=== PATIENT | male | born 1945 | race Caucasian/White ===

== ENCOUNTER → 2017-10-08 | Outpatient (CLI) | payer OTHER, BC ==
[2015-03-01 08:57] VITALS: BP 163/86
[~2017-10-08] MED LIST: NS 100 ML IV 100 ML IV ONE
--- NOTE | 2017-10-08 11:03 | CT ---
Indication: Status post fall with headaches and visual changes Exam: CT head with and without contrast. Technique: Routine transaxial images were obtained through the brain before after administration of u nder cc Omnipaque 350. Findings: The ventricles are mildly enlarged and there is diffuse mild prominence of the cortical sul ci. There is mild periventricular low density bilaterally. No intracranial hemorrhage or edema is see n and there is no extra-axial fluid collection or mass. The vascular structures are unremarkable with no enhancing lesion or mass identified. There is mild mucosal thickening throughout the ethmoid air cells . There is mild focal flattening deformity along the medial wall of the right orbit, in the are a of the lamina papyracea. The midline structures are unremarkable. Impression: Mild atrophy and mild chronic microischemic changes in the deep white matter with no acute intracrani al abnormality seen and specifically, no enhancing lesion or mass identified. Probable old mild compression fracture along the medial wall of the right orbit . Recommend clinical correlation suggest follow-up , if indicated. Mild chronic ethmoid sinusitis. Reported By:
== END | disposition home or self-care (01) | DRG 103 ==
LOC: RAD 08:38
PROVIDERS: ATTEND Nurse Practitioner Family
DX: R51 Headache (principal); H53.8 Other visual disturbances; W11.XXXS Fall on and from ladder, sequela; J32.2 Chronic ethmoidal sinusitis
CPT/HCPCS: 70470; A4222

== ENCOUNTER 2017-12-01 22:02 | Emergency (ER) | payer OTHER, BC ==
[2017-12-01 22:10] VITALS: BMI 32.3
[2017-12-01] MEDS ORDERED: NITROSTAT SL ONE (22:10)
[2017-12-01] MEDS ORDERED: NITROSTAT SL PRN (22:12)
[2017-12-01 22:19] LABS: BASOPHILS # (AUTO) 0.1 X10^3/uL (0.0-0.1); BASOPHILS % (AUTO) 0.8 % (0.2-1.0); EOSINOPHILS # (AUTO) 0.3 x10^3/uL (0.0-0.2); EOSINOPHILS % (AUTO) 2.3 % (0.9-2.9); HEMATOCRIT 46.6 % (42.0-54.0); HEMOGLOBIN 15.8 g/dL (13.5-18.0); LYMPHOCYTES # (AUTO) 4.6 X10^3/uL (1.3-2.9); LYMPHOCYTES % (AUTO) 36.5 % (21.0-51.0); MEAN CORPUSCULAR HEMOGLOBIN 30.1 pg (27.0-34.0); MEAN CORPUSCULAR HGB CONC 33.8 g/dL (33.0-35.0); MEAN CORPUSCULAR VOLUME 89.1 fL (80.0-100.0); MEAN PLATELET VOLUME 8.4 fL (7.4-11.0); MONOCYTES # (AUTO) 1.5 x10^3/uL (0.3-0.8); MONOCYTES % (AUTO) 11.5 % (0.0-13.0); NEUTROPHILS # (AUTO) 6.2 x10^3/uL (2.2-4.8); NEUTROPHILS % (AUTO) 48.9 % (42.0-75.0); PLATELET COUNT 343 X10^3/uL (150.0-450.0); RED BLOOD COUNT 5.23 X10^6/uL (4.7-6.0); RED CELL DISTRIBUTION WIDTH 13.5 % (11.6-16.5); WHITE BLOOD COUNT 12.7 X10^3/uL (3.6-10.0)
--- NOTE | 2017-12-01 22:31 | RAD ---
Chest, one view Indication: Shortness of breath, coughing up red colored frothy sputum Comparison: 03/01/2015 Findings: Heart size is normal. There is mild peribronchial thickening. No focal consolidation, signi ficant effusion or pneumothorax is identified. There is no acute osseous abnormality. Impression: Mild peribronchial thickening, suggestive for bronchitis. Reported By:
[2017-12-01 22:33] LABS: ALANINE AMINOTRANSFERASE 36 Units/L (12-78); ALKALINE PHOSPHATASE 82 Units/L (46-116); ASPARTATE AMINO TRANSFERASE 39 Units/L (15-37); BLOOD UREA NITROGEN 23 mg/dL (7-18); CALCIUM 9.4 mg/dL (8.5-10.1); CARBON DIOXIDE 23.9 mmol/L (21-32); CHLORIDE 106 mmol/L (98-107); COR NA(FOR HYPERGLY) 144 mmol/L (136-145); CREATININE 1.91 mg/dL (0.70-1.30); SODIUM 142 mmol/L (136-145); eGFR BLACK RACES 45 (>60); eGFR NON BLACK RACES 37 (>60)
[2017-12-01 22:45] LABS: B-TYPE NATRIURETIC PEPTIDE 54.6 pg/mL (0-79)
[2017-12-01 23:01] LABS: CREATINE KINASE 473 Units/L (39-308); TROPONIN I < 0.02 ng/mL (0-1.5)
[2017-12-01 23:03] LABS: CREATINE KINASE MB 4.7 ng/mL (0-4.0)
[2017-12-01] MEDS ORDERED: REFLEX: PROVENTIL NEB & PulmiCORT NEB~ NEB SCH (23:15)
--- NOTE | 2017-12-01 23:16 | DR.SOBA ---
HPI - Primary Care Physician Primary Care Physician: RAFAELA - HPI Comment HPI Comment: Pt with chronic cough and acute Dyspnea with productive cough of blood tinged frothy sputum. - Complaints Chief Complaint:: SHORTNESS OF BREATH COUGHING UP RED COLORED FROTHY SPUTUM PT IS COOL AND CLAMMY - Source History Provided: Patient - Mode of Arrival Mode of Arrival: Ambulatory - Timing Onset of Chief Complaint: 12/01/17 - Associated Signs and Symptoms Associated Signs and Symptoms: Cough - If Chest Pain Quality: Burning, Pleuritic - If Cough Cough: Productive, Bloody PMH - PMH Past Medical History: Yes Past Medical History: Arthritis, Diabetes, Dyslipidemia, Hypertension, Hypothyroidism Past Surgical History: Yes Surgical History: Ortho Surgery - Family History History of Family Medical Conditions: Yes Family Medical History: Diabetes Mellitus, Sudden Cardiac , Hypertension - Social History Does any household member use tobacco: No Alcohol Use: None Do you use any recreational Drugs:: No Lives With: Family Lives Where: Home - infectious screening In the last 2 months have you had wt loss of >10#?: NO Have you had fever, night sweats or hemotysis?: No Have you traveled outside the country in the last 6 months?: No Isolation: Standard ROS - Review of Systems Respiratoy: Productive Cough, Non-Productive Cough, Hacking Cough, Short of Breath Cardiovascular: No Symptoms Reported Gastrointestinal/Abdominal: No Symptoms Reported Genitourinary: No Symptoms Reported Neurological: No Symptoms Reported Musculoskeletal: No Symptoms Reported Integumentary: No Symptoms Reported Hematologic/Lymphatic: No Symptoms Reported Endocrine: No Symptoms Reported Psychiatric: No Symptoms Reported All Other Systems: Reviewed and Negative PE - Vital Signs Vitals: Temperature 98.1 F Pulse Rate 116 Respiratory Rate 26 Blood Pressure [Right Arm] 154/76 Blood Pressure [Left Arm] 163/86 Blood Pressure 165/89 O2 Sat by Pulse Oximetry 95 - General General Appearance: Alert, In Distress (diaphoretic) - Head Head Exam: Normal Inspection - Eyes Eye exam: Normal Appearance - ENT ENT Exam: Normal Exam - Neck Neck Exam: Normal Inspection - Chest Chest Inspection: Normal Inspection, Symmetric Chest Wall Rise - Respiratory Respiratory Exam: Normal Lung Sounds Bilat, Respiratory Distress. negative: Accessory Muscle Use, Chest Wall Tenderness, Prolonged Expiratory Phase, Stridor Respiratory Exam: Bilateral Clear to Auscultation - Cardiovascular Cardiovascular Exam: Regular Rate, Normal Rhythm - Abdominal Exam Abdominal Exam: Normal Inspection - Extremities Extremities Exam: Normal Inspection - Back Back Exam: Normal Inspection - Neurologic Neurological Exam: Alert, Oriented X3, CN II-XII Intact - Psychiatric Psychiatric Exam: Normal Affect - Skin Skin Exam: Diaphoresis Course - Reevaluation 1st: Improved 2nd: Resolved ROR - Labs Reviewed Result Diagrams: 12/01/17 22:10 12/01/17 22:10 Laboratory: WBC 12.7 X10^3/uL (3.6-10.0) H 12/01/17 22:10 RBC 5.23 X10^6/uL (4.7-6.0) 12/01/17 22:10 Hgb 15.8 g/dL (13.5-18.0) 12/01/17 22:10 Hct 46.6 % (42.0-54.0) 12/01/17 22:10 MCV 89.1 fL (80.0-100.0) 12/01/17 22:10 MCH 30.1 pg (27.0-34.0) 12/01/17 22:10 MCHC 33.8 g/dL (33.0-35.0) 12/01/17 22:10 RDW 13.5 % (11.6-16.5) 12/01/17 22:10 Plt Count 343 X10^3/uL (150.0-450.0) 12/01/17 22:10 MPV 8.4 fL (7.4-11.0) 12/01/17 22:10 Neut % (Auto) 48.9 % (42.0-75.0) 12/01/17 22:10 Lymph % (Auto) 36.5 % (21.0-51.0) 12/01/17 22:10 Lee % (Auto) 11.5 % (0.0-13.0) 12/01/17 22:10 Eos % (Auto) 2.3 % (0.9-2.9) 12/01/17 22:10 Baso % (Auto) 0.8 % (0.2-1.0) 12/01/17 22:10 Neut # (Auto) 6.2 x10^3/uL (2.2-4.8) H 12/01/17 22:10 Lymph # (Auto) 4.6 X10^3/uL (1.3-2.9) H 12/01/17 22:10 Lee # (Auto) 1.5 x10^3/uL (0.3-0.8) H 12/01/17 22:10 Eos # (Auto) 0.3 x10^3/uL (0.0-0.2) H 12/01/17 22:10 Baso # (Auto) 0.1 X10^3/uL (0.0-0.1) 12/01/17 22:10 Absolute Nucleated RBC 0.1 /100WBC 12/01/17 22:10 Sodium 142 mmol/L (136-145) 12/01/17 22:10 Corrected Sodium 144 mmol/L (136-145) 12/01/17 22:10 Potassium 4.1 mmol/L (3.5-5.1) 12/01/17 22:10 Chloride 106 mmol/L (98-107) 12/01/17 22:10 Carbon Dioxide 23.9 mmol/L (21-32) 12/01/17 22:10 BUN 23 mg/dL (7-18) H 12/01/17 22:10 Creatinine 1.91 mg/dL (0.70-1.30) H 12/01/17 22:10 Est GFR (MDRD) Af Amer 45 (>60) L 12/01/17 22:10 Est GFR (MDRD) Non-Af 37 (>60) L 12/01/17 22:10 Glucose 166 mg/dL (65-99) H 12/01/17 22:10 Calcium 9.4 mg/dL (8.5-10.1) 12/01/17 22:10 Corrected Calcium TNP 12/01/17 22:10 Total Bilirubin 0.30 mg/dL (0.2-1.0) 12/01/17 22:10 AST 39 Units/L (15-37) H 12/01/17 22:10 ALT 36 Units/L (12-78) 12/01/17 22:10 Alkaline Phosphatase 82 Units/L (46-116) 12/01/17 22:10 Creatine Kinase 473 Units/L (39-308) H 12/01/17 22:10 CK-MB (CK-2) 4.7 ng/mL (0-4.0) H* 12/01/17 22:10 CK/CKMB % Calc 1.0 % (<4) 12/01/17 22:10 Troponin I < 0.02 ng/mL (0-1.5) 12/01/17 22:10 B-Natriuretic Peptide 54.6 pg/mL (0-79) 12/01/17 22:10 Total Protein 8.0 g/dL (6.4-8.2) 12/01/17 22:10 Albumin 4.0 g/dL (3.4-5.0) 12/01/17 22:10 Globulin 4.0 g/dL (2.5-4.5) 12/01/17 22:10 Albumin/Globulin Ratio 1.0 Ratio (1.1-2.1) L 12/01/17 22:10 - Diagnosis Discharge Problem: Bronchitis - Discharge Plan Condition: Good Prescriptions: Fluticasone-Salmeterol 250/50 [ADVAIR DISKUS 250/50 60-DOSE *] 1 puff IN BID #1 each Levofloxacin [LEVAQUIN TAB 500 MG *] 500 mg PO DAILY #7 tab - Follow ups/Referrals Follow ups/Referrals: Nils Pena [Primary Care Provider] - 3 days - Instructions
[2017-12-01] MEDS ORDERED: LEVAQUIN TAB 500 MG ONE (23:19)
[2017-12-01] MEDS ORDERED: PULMICORT NEB TX 0.5 MG NEB ONE (23:20)
[2017-12-01] MEDS ORDERED: PROVENTIL NEB TX 0.083% 2.5MG/ 3ML ONE (23:21)
[2017-12-01] MEDS ORDERED: LEVAQUIN TAB 500 MG PO SCH (23:45)
[2017-12-01 23:57] VITALS: BP 114/70
== END 2017-12-01 23:55 | disposition home or self-care (01) ==
LOC: ER 22:02
DX: J40 Bronchitis, not specified as acute or chronic (principal)
CPT/HCPCS: 36415; 71045; 80053; 82550; 82553; 83880; 84484; 85025; 93005; 94640; 96365; 99283; A4222; J7613; J7626